=== PATIENT | male | born 1950 | race Hispanic/Latino ===

== ENCOUNTER 2020-01-11 09:02 | Outpatient (CLI) | payer BC ==
--- NOTE | 2020-01-11 13:13 | CT ---
CT Abdomen Pelvis W WO con: 01/11/2020 12:00 AM CLINICAL INFORMATION: Renal mass COMPARISON: None. TECHNIQUE: Multiple contiguous axial images were obtained and a CT of the abdomen and pelvis without and with IV contrast. Coronal and sagittal reformats were performed. FINDINGS: Lower Chest: Calcified granuloma in the right lung base. Abdomen: Liver: within normal limits. Bile Ducts: Normal caliber. Gallbladder: No calcified gallstones. Normal caliber wall. Pancreas: within normal limits. Spleen: within normal limits. Adrenals: within normal limits. Kidneys: within normal limits. No renal calculi. Pelvis: Reproductive Organs: No pelvic masses. Ureters: within normal limits. Bladder: within normal limits. Peritoneum: No ascites or free air, no fluid collection. Bowel: Normal caliber. Normal appendix. Scattered diverticula in the colon. Mesentery and Retroperitoneum: No enlarged mesenteric or retroperitoneal lymph nodes. Vessels: Atherosclerotic calcifications. Abdominal Wall: There is a complex solid/cystic mass in the right aspect of the lower scrotum there i s only partially visualized. A normal left testicle seen and a right testicle is not definitely appreciated. Bones: Degenerative changes in the spine. IMPRESSION: 1. No renal abnormality identified 2. Right scrotal mass. A testicular/scrotal ultrasound is recommended for further evaluation. 2. Diverticulosis
== END 2020-01-11 09:03 | disposition home or self-care (01) ==
LOC: SCSCT 09:02
PROVIDERS: ATTEND Family Medicine
DX: N28.89 Other specified disorders of kidney and ureter (principal); K57.90 Diverticulosis of intestine, part unspecified, without perforation or abscess without bleeding; N50.89 Other specified disorders of the male genital organs
CPT/HCPCS: 74178; 82565

== ENCOUNTER 2020-02-01 07:02 | Outpatient (CLI) | payer BC, OTHER | END 2020-02-01 07:03 | disposition home or self-care (01) | LOC: LABBT 07:02 | PROVIDERS: ATTEND Urology | DX: Z01.818 Encounter for other preprocedural examination (principal); Z11.59 Encounter for screening for other viral diseases; N50.89 Other specified disorders of the male genital organs; N49.2 Inflammatory disorders of scrotum | CPT/HCPCS: 36415; 82105 ==

== ENCOUNTER 2020-02-08 07:27 | Outpatient (CLI) | payer BC, OTHER ==
[2020-02-08 14:02] LABS: Hemoglobin 15.2 g/dL (14.0-18.0); Mean Corpuscular HGB CONC 33.8 g/dL (32.0-36.0); Mean Corpuscular Hemoglobin 31.9 pg (27.0-31.0); Mean Corpuscular Volume 94.5 fL (78.0-98.0); Platelet Count 274 thou/uL (130-400); RBC Distribution Width 13.3 % (11.5-14.5); Red Blood Cell (RBC) Count 4.76 mill/uL (4.70-6.10); White Blood Cell (WBC) Count 11.7 thou/uL (4.8-10.8)
[2020-02-08 14:07] LABS: Bilirubin Negative (Negative); Blood, Urine 1+ (Negative); Clarity Clear (Clear); Glucose, Urine (Dipstick) Normal (Negative); Ketone, Urine Trace mg/dL (Negative); Leukocyte Negative Leu/uL (Negative); Nitrite Negative (Negative); Protein, Urine (Dipstick) 20 mg/dL (Neg-Trace); Specific Gravity, Urine 1.037 (1.002-1.036); Squamous Epithelial None Seen HPF (0-3); WBC/HPF 0-3 HPF (0-3); pH, Urine 5.5 (5.0-9.0)
[2020-02-08 14:14] LABS: Bacteria/HPF 1+ HPF (None Seen)
[2020-02-08 14:24] LABS: INR-International Normal Ratio 0.9; Prothrombin Time 11.9 sec (12.0-14.7)
[2020-02-08 14:32] LABS: Anion Gap 14 mmol/L (10-20); BUN (Urea Nitrogen) 15 mg/dL (8.4-25.7); Calc. Creatinine Clearance 0 mL/min (70-130); Calcium 9.6 mg/dL (7.8-10.44); Carbon Dioxide 25 mmol/L (23-31); Chloride 104 mmol/L (98-107); Estimated GFR-MDRD Greater than 90; Glucose 108 mg/dL (80-115); Potassium 4.7 mmol/L (3.5-5.1); Sodium 138 mmol/L (136-145)
[2020-02-09 12:21] LABS: SARS-CoV-2 MS2 Positive; SARS-CoV-2 N Gene Negative; SARS-CoV-2 S Gene Negative; SARS-CoV-2 orf1ab Negative
== END 2020-02-08 07:28 | disposition home or self-care (01) ==
LOC: LABBT 07:27
PROVIDERS: ATTEND Specialist
DX: Z01.818 Encounter for other preprocedural examination (principal); Z11.59 Encounter for screening for other viral diseases; N50.89 Other specified disorders of the male genital organs; N49.2 Inflammatory disorders of scrotum
CPT/HCPCS: 80048; 81001; 85027; 85610; 85730; 87086; 87635; 93005; 93010; U0003

== ENCOUNTER 2020-02-12 05:50 | Observation (INO) | payer BC ==
[2020-02-12] MEDS ORDERED: Bupivacaine 0.25% HCL 30 ML VIAL ONE (06:48)
[2020-02-12] MEDS ORDERED: Fentanyl 100 MCG/2 ML VIAL ONE ×4 (06:57→16:29)
[2020-02-12] MEDS ORDERED: CEFAZOLIN 1 GM VIAL ONE (07:22)
[2020-02-12] MEDS ORDERED: Sodium Chloride 0.9% 100 ML ONE (07:22)
[2020-02-12] MEDS ORDERED: Neomycin-Polymyxin 1 ML AMP ONE (08:48)
[2020-02-12] MEDS ORDERED: Morphine 2 MG/ML VIAL ONE ×3 (10:30→12:18)
[2020-02-12] MEDS ORDERED: Dexamethasone 20 MG/5 ML VIAL ONE (10:32)
[2020-02-12] MEDS ORDERED: Ondansetron PF 4 MG/2 ML Vial ONE ×2 (10:32→10:33)
[2020-02-12] MEDS ORDERED: Lidocaine 1% PF 5 ML VIAL ONE ×2 (10:32→10:33)
[2020-02-12] MEDS ORDERED: PROPOFOL 200 MG/20 ML VIAL ONE ×2 (10:32→10:33)
[2020-02-12] MEDS ORDERED: Succinylcholine Chloride 20 MG/ML 10 ml SYRINGE FS ONE (10:33)
[2020-02-12] MEDS ORDERED: EPHEDRINE 25 MG/5 ML SYRINGE ONE (10:33)
[2020-02-12] MEDS ORDERED: HYDROcodone/Acetaminophen 5/325 mg Tablet ONE (10:52)
[2020-02-12 11:57] LABS: Hemoglobin 14.5 g/dL (14.0-18.0)
[2020-02-12] MEDS ORDERED: Bacitracin Zinc Ointment 30 gm TUBE ONE (13:22)
[2020-02-12] MEDS ORDERED: Promethazine HCl 25 MG/ML VIAL IM PRN (13:49)
[2020-02-12] MEDS ORDERED: Morphine Sulfate 2 MG/ML SYRINGE SLOW IVP PRN (13:49)
[2020-02-12] MEDS ORDERED: Promethazine HCl 25 MG/ML VIAL SLOW IVP PRN (13:49)
[2020-02-12] MEDS ORDERED: Ondansetron HCl/PF 4 MG/2 ML Vial IVP PRN (13:49)
[2020-02-12] MEDS ORDERED: HYDROmorphone 2 MG/ML VIAL SLOW IVP PRN (13:49)
[2020-02-12] MEDS ORDERED: Promethazine HCl 25 MG/ML VIAL ONE (13:56)
--- NOTE | 2020-02-12 14:06 | OP ---
DATE OF PROCEDURE: 02/12/2020 SERVICE: Urology. PREOPERATIVE DIAGNOSIS: Right testicular mass. 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 PROCEDURE PERFORMED: Right simple orchiectomy. INDICATION FOR PROCEDURE: Mr. Suarez is a 69-year-old male who initially presented to me after a testicular injury occurring in October, which was associated with significant pain and discomfort. He had a fluid collection in the right scrotum, which resulted in significant pain in that area with the testicle becoming severely inflamed. He ultimately went to his primary care doctor, where he had a scrotal ultrasound, which demonstrated a mass within the right hemiscrotum, which was thought to be a damaged testicle, although cancer could not be excluded. He was on antibiotics and his pain ultimately went away; however, his testicle remained significantly disfigured. He had pus drained spontaneously out of his scrotum. After a long discussion and after obtaining tumor markers, which were negative, I discussed doing a simple orchiectomy as the patient had [id number] blood flow within the testicle and it was concerned that this may potentially represent a tumor versus a testicle. Risks and benefits of surgery were discussed and he has agreed to proceed forward. DESCRIPTION OF PROCEDURE: After identification of armband and verification of consent, the patient was brought back to the operating room where he underwent general anesthesia with an LMA. He was then left in the supine position and prepped and draped in the usual sterile fashion. After appropriate time-out, a cord block was performed with approximately 6 mL of 0.25% Marcaine plain. An incision was made with a 10 blade across one of Pao's lines on the scrotum over the area of the testicle. This resulted a significantly dense tissue and there was almost no surgical plane between the testicle and the skin itself. Using Metzenbaum scissors, the surgical plane had to be created as the testicle was almost completely fused to the surrounding tissues. The majority of the testicle had to be basically cut free from the surrounding tissues. Again, no surgical plane in the tunica albuginea could not be identified, likely secondary to intense inflammatory reaction. During this process out of concern that potential cancer principles were not being followed and surgical planes could not be observed, I did send frozen sections off from what appeared to be a tumor inside the testicle. 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 The pathologist felt fairly confident that this did not represent a lymphoma or a germ cell tumor. Nonetheless, again the testicle appeared severely damaged at this point and I felt the best option would be to go ahead and remove the testicle in its entirety. The testicle was dissected more posteriorly. There did appear to be a better surgical plane again, although the testicle itself could never really truly be visualized. The spermatic cord was able to be identified as a separate structure and still had its surgical planes present. The spermatic cord was divided in 2 segments by making a small hole in the center, and then using 0 silk ties to tie each segment, the testicle was then cut with Metzenbaum scissors at the spermatic cord off and was sent off for routine pathologic evaluation. The inside of the scrotum was then evaluated. Any large chunk of what looked like diseased tissue were excised and removed until the scrotal bed appeared relatively benign. Again, all surgical planes could not be observed, and if the testicle the specimen comes back with malignancy, there is a good chance there are malignant cells still present within the scrotum. In any case, the scrotum was washed out copiously with antibiotic irrigation. A small incision was made at the inferior aspect of the scrotum, from which a [place] drain was brought in. The superior aspect of the [place] was affixed to a small amount of tissue using a 4-0 Monocryl and the outside of the drain attached with a 3-0 nylon. After irrigating the inside of the scrotum, a 2-layered closure was attempted. Again, there was very little tissue to sew to as the spermatic fascia and dartos were almost fused with the testicle and the skin. We had to go a little bit lower down, which resulted in a mild disfigurement of the scrotum in order to properly close this in 2 layers. A 2-0 Vicryl was used to close the deeper layer of tissues and then the skin was closed with a 4-0 Monocryl in a running fashion. The skin was then infiltrated with 0.25% Marcaine plain for a total of 24 mL of Marcaine used in completion. Dermabond was applied to the incision, and then once dried, scrotal fluffs applied in a jockstrap. The patient then awakened and taken to PACU for recovery in stable condition. COMPLICATIONS: None. ESTIMATED BLOOD LOSS: 50 mL. RETAINED TUBES AND DRAINS: A quarter-inch [place]. SPECIMENS: Right testicle with distal spermatic cord. DISPOSITION: The patient will be discharged home and follow up with me in approximately 1 week for a drain removal and postoperative check. We will go over his pathology at that time and then handle his outpatient care thereafter. Job ID: [id number]
--- NOTE | 2020-02-12 14:16 | OP ---
DATE OF PROCEDURE: 02/12/2020 PREOPERATIVE DIAGNOSIS: Postorchiectomy bleed. POSTOPERATIVE DIAGNOSIS: Postorchiectomy bleed. PROCEDURES PERFORMED: 1. Scrotal exploration. 2. Evacuation of hematoma. 3. Suture of bleeding vessel from spermatic cord. ANESTHESIA: General. COMPLICATIONS: None. BLOOD LOSS: Minimal. SPECIMENS: None. DESCRIPTION OF PROCEDURE: After informed consent, the patient was brought back to the operating room. He transferred to the table. Anesthesia was established. A time-out was performed, showing the correct patient, site, and procedure. Preoperative antibiotics were administered. He was prepped and draped in the supine position. I began by removing the Dermabond and incising the Monocryl suture from the scrotal incision. The Vicryl closing dartos was then cut and the right hemiscrotum entered, noting a large blood clot, which was evacuated. I then inspected the spermatic cord and noted a bleeding vessel from one of the stumps of the spermatic cord. This was oversewn with 0 silk suture, noting no further bleeding. The scrotum was copiously irrigated and then filled with saline, which remained clear, indicating no active bleeding. I then replaced a [place] drain through the dependent portion of the scrotum and sutured this in place with silk suture. Dartos was then closed with Vicryl suture and then skin was closed in an interrupted vertical mattress fashion with 2-0 chromic suture. The wound was dressed with antibiotic ointment, gauze, and jockstrap. At this point, the patient was awoken from anesthesia, transferred back to his hospital bed, and taken to PACU in stable condition, where he will be admitted overnight. All counts were correct at the end of the case. Job ID: [id number]
[2020-02-12] MEDS ORDERED: Zolpidem Tartrate 5 MG TAB PO PRN (18:19)
[2020-02-12] MEDS ORDERED: Morphine 4 MG/ML VIAL SLOW IVP PRN (18:19)
[2020-02-12] MEDS ORDERED: diphenhydrAMINE 50 MG/ML VIAL IVP PRN (18:19)
[2020-02-12] MEDS ORDERED: Ondansetron PF 4 MG/2 ML Vial IVP PRN (18:19)
[2020-02-12] MEDS: HYDROcodone/Acetaminophen 10/325 mg Tablet PO PRN ×2 (19:54→23:25)
[2020-02-12] MEDS: Docusate 100 MG CAP PO SCH (19:55)
[2020-02-12] MEDS: Sodium Chloride 0.9% 1,000 ML IV SCH ×2 (19:55→23:27)
[2020-02-12 20:05] VITALS: BMI 29.0
[2020-02-12] MEDS: CEFAZOLIN 2 GM in Premix Bag 1 BAG IVPB SCH (20:09)
[2020-02-13] MEDS: CEFAZOLIN 2 GM in Premix Bag 1 BAG IVPB SCH (04:13)
[2020-02-13] MEDS: HYDROcodone/Acetaminophen 10/325 mg Tablet PO PRN ×2 (04:20→09:18)
[2020-02-13] MEDS ORDERED: Levothyroxine Sodium 50 MCG TAB PO SCH (06:00)
[2020-02-13] MEDS ORDERED: Prevnar 13-Val Conj/PF 0.5 ML SYRINGE IM ONE (09:00)
[2020-02-13] MEDS ORDERED: Pregabalin 75 MG CAP PO SCH (09:00)
[2020-02-13] MEDS: Docusate 100 MG CAP PO SCH (09:17)
[2020-02-13 10:25] VITALS: BP 154/71; TEMP 97.8
--- NOTE | 2020-02-15 11:41 | DIS ---
DATE OF ADMISSION: 02/12/2020 DATE OF DISCHARGE: 02/13/2020 DISCHARGE DIAGNOSES: Scrotal hematoma, postoperative bleed. HOSPITAL COURSE: The patient underwent an outpatient right orchiectomy yesterday. In the recovery room, he developed significant swelling and pain at which point, I examined him and we decided to proceed to the operating room for evacuation of hematoma. He did have a fairly large blood clot on the right hemiscrotum and I was able to identify a bleeding vessel in one of the stumps of the spermatic cord. This was suture-ligated with resolution of the bleed. We elected to observe him overnight. This morning, he tells me he is having minimal discomfort. He has good appetite and denies fevers, chest pain, difficulty urinating. He is ambulating, tolerating diet, stable for discharge home. DISCHARGE PHYSICAL EXAMINATION: GENERAL: No acute distress. Unlabored breathing. HEART: Regular rate and rhythm. ABDOMEN: Soft, nontender, nondistended. No abdominal or flank bruising. GENITALIA: Right hemiscrotum soft with mild edema around the sutures. Drain in good position with serosanguineous drainage. DISCHARGE MEDICATIONS: Hydrocodone, resume all home medicines. DISCHARGE INSTRUCTIONS: Light non-stressful activities, regular diet, shower normally, replace clean gauze twice daily at least once of these after showering. Followup on February 16 for drain removal. Job ID: [id number]
== END 2020-02-13 12:01 | disposition home or self-care (01) ==
LOC: SDC 05:50 → SURG B 18:19
PROVIDERS: ADMIT Urology; ATTEND Urology
PROC: 0VT90ZZ Resection of Right Testis, Open Approach (ICD-10-PCS; principal; 2020-02-12)
PROC: 0V950ZZ Drainage of Scrotum, Open Approach (ICD-10-PCS; 2020-02-12)
PROC: 0V9 Male Reproductive System, Drainage (ICD-10-PCS; 2020-02-12)
DX: N49.2 Inflammatory disorders of scrotum (principal); N50.89 Other specified disorders of the male genital organs; N99.820 Postprocedural hemorrhage of a genitourinary system organ or structure following a genitourinary system procedure; F17.200 Nicotine dependence, unspecified, uncomplicated; Z79.899 Other long term (current) drug therapy
CPT/HCPCS: 36415; 85014; 85018; 88305; 88312; 88331; 88341; 88342; 96361; 96365; 96376; G0378; J0690; J1100; J2270; J2405; J2550; J2704; J3010; J3490; S0020